=== PATIENT | female | born 1960 | race Caucasian/White ===

== ENCOUNTER 2019-07-02 08:20 | Emergency (ER) | payer BC ==
[~2019-07-02] VITALS: Ht 167.6 cm; Wt 70.3 kg
[2019-07-02 08:24] VITALS: BP_SYST 156
--- NOTE | 2019-07-02 08:35 | NUR ---
Patient to ER bed 7 to gown for evaluation. Side rails up. Report given to Kymberly KNIGHT.
--- NOTE | 2019-07-02 08:40 | NUR ---
Patient arrived via POV, AAOx4, and ambulatory with steady gait. Patient c/c of hematuria, grossly. Patient concerned regarding possible vaginal bleeding, states she has history of total hysterectomy. Patient states no back pain, nausea, vomiting, diarrhea, pain present in pelvic region 11/03. Patient states the only thing that has changed is lifting a plant yesterday, she also has history of rectal prolapse. Patient taking only estradiol and metformin for home medications. Patient did take motrin yesterday for mild shoulder pain. Will continue to follow up and monitor. Patient given urine specimen cup for obtaining a specimen.
[2019-07-02 08:44] LABS: BILIRUBIN,URINE NEGATIVE (NEGATIVE); BLOOD, URINE 3+ (NEGATIVE); CLARITY/URINE SL CLOUDY (CLEAR); COLOR,URINE YELLOW (YELLOW); GLUCOSE,URINE NEGATIVE (NEGATIVE); KETONES,URINE NEGATIVE (NEGATIVE); LEUKOCYTE ESTERASE ,URINE 2+ (NEGATIVE); NITRITE, URINE POSITIVE (NEGATIVE); PROTEIN URINE 1+ (NEGATIVE); UROBILINOGEN,URINE 0.2 (0.2-1.0)
--- NOTE | 2019-07-02 08:45 | NUR ---
ER at bedside examining patient.
[2019-07-02 08:53] LABS: BACTERIA,URINE MODERATE /HPF (None Seen); RBC,URINE >100 /HPF (0-3); WBC,URINE 50-80 /HPF (0-3)
[2019-07-02] MEDS ORDERED: LEVOFLOXACIN 500 MG TABLET PO ONE (09:00)
[2019-07-02 09:20] VITALS: BP_SYST 151
--- NOTE | 2019-07-02 09:20 | NUR ---
Patient given written and verbal discharge instructions and verbalizes understanding. ER MD discussed with patient the results and treatment provided. Patient in stable condition. ID arm band removed. Rx of Cipro given. Patient educated on pain management and to follow up with PMD. Pain Scale 1/10. Opportunity for questions provided and answered. Medication side effect fact sheet provided.
--- NOTE | 2019-07-04 16:10 | NUR ---
Final C & S report reviewed by Dr. Lofton. Patient was prescribed Cipro and no further action is needed per Dr. Lofton.
== END 2019-07-02 09:20 | disposition home or self-care (01) ==
LOC: SED 08:20
DX: N30.90 Cystitis, unspecified without hematuria (principal); I10 Essential (primary) hypertension
CPT/HCPCS: 81000-TC; 87086; 87186-TC; 99283

== ENCOUNTER 2021-03-27 08:17 | Emergency (ER) | payer BC ==
[~2021-03-27] VITALS: Ht 167.6 cm; Wt 69.4 kg
[2021-03-27 08:23] VITALS: BP_SYST 146
[2021-03-27 08:49] LABS: BILIRUBIN,URINE NEGATIVE (NEGATIVE); CLARITY/URINE SL CLOUDY (CLEAR); COLOR,URINE YELLOW (YELLOW); GLUCOSE,URINE NEGATIVE (NEGATIVE); KETONES,URINE NEGATIVE (NEGATIVE); LEUKOCYTE ESTERASE ,URINE NEGATIVE (NEGATIVE); NITRITE, URINE NEGATIVE (NEGATIVE); PROTEIN URINE NEGATIVE (NEGATIVE); UROBILINOGEN,URINE 0.2 (0.2-1.0)
[2021-03-27 08:53] LABS: BLOOD, URINE TRACE (NEGATIVE)
[2021-03-27] MEDS ORDERED: KETOROLAC TROMETHAMINE 30 MG VIAL IVP ONE (09:00)
[2021-03-27 09:08] LABS: BACTERIA,URINE FEW /HPF (None Seen); WBC,URINE 0-3 /HPF (0-3)
[2021-03-27 09:12] LABS: BASOPHILS % (AUTO) 0.8 % (0.0-2.0); EOSINOPHILS # (AUTO) 0.1 K/uL (0.0-0.4); EOSINOPHILS % (AUTO) 2.5 % (0.0-4.0); HEMATOCRIT 40.8 % (36-48); HEMOGLOBIN 13.8 g/dL (12.0-16.0); LYMPHOCYTES # (AUTO) 2.3 K/uL (1.0-5.5); LYMPHOCYTES % (AUTO) 39.7 % (20.5-51.5); MEAN CORPUSCULAR HEMOGLOBIN 30 pg (27-31); MEAN CORPUSCULAR HGB CONC 34 % (32-36); MEAN CORPUSCULAR VOLUME 89 fL (79.0-98.0); MONOCYTES # (AUTO) 0.4 K/uL (0.0-1.0); MONOCYTES % (AUTO) 6.5 % (1.7-9.3); NEUTROPHILS % (AUTO) 50.5 % (40.0-70.0); PLATELET COUNT (AUTO) 248 K/uL (130-430); RED BLOOD CELL COUNT(AUTO) 4.59 MIL/uL (4.2-6.2); RED CELL DISTRIBUTION WIDTH 12.5 % (9.0-15.0); WHITE BLOOD COUNT (AUTO) 5.9 K/uL (4.8-10.8)
[2021-03-27 09:21] LABS: ANION GAP 7 (5-15); CALCIUM 8.6 mg/dL (8.4-11.0); CHLORIDE 106 mmol/L (98-107); CREATININE 0.91 mg/dL (0.55-1.30); GLUCOSE 192 mg/dL (70-99); POTASSIUM 4.1 mmol/L (3.5-5.1); SODIUM SERUM 142 mmol/L (136-145); UREA NITROGEN, BLOOD 14 mg/dL (8-21)
[2021-03-27 09:22] LABS: GFR AFRICAN AMERICAN 81 mL/min (>90)
[2021-03-27 09:31] LABS: ALANINE AMINOTRANSFERASE 21 U/L (12-78); ALBUMIN 3.9 g/dL (3.4-4.8); ASPARTATE AMINOTRANSFERASE 14 U/L (10-37); LIPASE 90 U/L (73-393); TOTAL BILIRUBIN 0.6 mg/dL (0.0-1.0)
[2021-03-27] MEDS ORDERED: TRAM50TA2 PO (10:31)
[2021-03-27] MEDS ORDERED: TAMS-11 PO (10:33)
[2021-03-27 10:49] VITALS: BP_SYST 146
== END 2021-03-27 10:51 | disposition home or self-care (01) ==
LOC: SED 08:17
DX: N23 Unspecified renal colic (principal); R19.7 Diarrhea, unspecified; E11.9 Type 2 diabetes mellitus without complications
CPT/HCPCS: 36415; 74176; 76376; 80053; 81000; 83690; 84484; 85025; 93005; 96374; 99285; J1885